=== PATIENT | female | born 1935 | race Caucasian/White ===

== ENCOUNTER → 2016-12-18 | Outpatient (CLI) | payer MEDICARE, OTHER ==
[~2016-12-18] MED LIST: B12100 MCG PO; BIOTIN1000 MCG PO; COZAAR50 MG PO; HYDRODIURIL25 MG PO; K-PHOS500 MG PO; SYNTHROID,LEVO50 MCG PO; TOPROL-XL50 MG PO; VITAMIN D31000 IU PO; ZETIA10 MG PO
[2016-12-18 12:10] LABS: ALBUMIN 3.6 gm/dl (3.1-4.5); BUN 27 mg/dl (7-24); CARBON DIOXIDE 27 mmol/L (21-32); CHLORIDE 103 mmol/L (98-107); EST GLOM FILT AFRICAN AMERICAN > 60 ml/min; GLUCOSE 89 mg/dL (65-99); POTASSIUM 4.2 mmol/L (3.5-5.1); SGOT/AST 41 IU/L (3-35); SGPT/ALT 39 U/L (12-78); SODIUM 138 mmol/L (136-145)
[2016-12-18 12:11] LABS: ALKALINE PHOSPHATASE 71 U/L (45-117); BILIRUBIN, TOTAL 0.4 mg/dl (0.2-1.0)
== END | disposition home or self-care (01) ==
LOC: LAB 00:10
PROVIDERS: Physician Assistant
DX: Z79.1 Long term (current) use of non-steroidal anti-inflammatories (NSAID) (principal)

== ENCOUNTER → 2017-01-23 | Outpatient (CLI) | payer MEDICARE, OTHER ==
[2017-01-23 11:26] LABS: BASO # 0.1 10*3/uL (0.0-0.1); EOS # 0.2 10*3/uL (0.0-0.4); EOS % 2.8 % (1.0-4.0); HEMATOCRIT 39.4 % (37.0-47.0); HEMOGLOBIN 13.3 g/dl (12.0-16.0); LYMPH # 2.1 10*3/uL (1.3-4.4); LYMPH % 34.3 % (27.0-41.0); MEAN CELL VOLUME 94.3 fl (81.0-99.0); MEAN CORPUSCULAR HGB 31.8 pg (27.0-31.0); MEAN CORPUSCULAR HGB CONC 33.8 g/dl (33.0-37.0); MEAN PLATELET VOLUME 9.4 fl (9.6-12.3); MONO # 0.4 10*3/uL (0.1-1.0); MONO % 6.3 % (3.0-9.0); NEUT # 3.3 10*3/uL (2.3-7.9); NEUT % 55.3 % (47.0-73.0); PLATELET COUNT AUTOMATED 217 10*3/uL (130-400); RED BLOOD COUNT 4.18 10*6/uL (4.10-5.10); RED CELL DISTRI WIDTH 13.4 % (0-14.5)
[2017-01-23 11:28] LABS: BILIRUBIN NEGATIVE (NEGATIVE); BLOOD 1+ (NEGATIVE); CLARITY CLEAR (CLEAR); COLOR YELLOW (YELLOW); GLUCOSE NEGATIVE (NEGATIVE); KETONE NEGATIVE (NEGATIVE); LEUKO ESTERASE TRACE (NEGATIVE); NITRITE NEGATIVE (NEGATIVE); UROBILINOGEN 0.2 E.U./dl (0.2-1.0)
[2017-01-23 11:57] LABS: BUN 18 mg/dl (7-24); CHLORIDE 105 mmol/L (98-107); CREATININE 1.04 mg/dL (0.55-1.02); SODIUM 137 mmol/L (136-145)
[2017-01-23 12:00] LABS: INTERNATIONAL NORM RATIO 1.1 (2.0-3.5)
== END | disposition home or self-care (01) ==
LOC: LAB 10:19
PROVIDERS: Surgery
DX: Z01.818 Encounter for other preprocedural examination (principal); K42.9 Umbilical hernia without obstruction or gangrene; D68.8 Other specified coagulation defects; Z79.899 Other long term (current) drug therapy

== ENCOUNTER → 2017-01-29 | Day surgery (SDC) | payer MEDICARE, OTHER ==
[2017-01-23 10:35] VITALS: BP 152/71
[~2017-01-29] VITALS: Ht 162.5 cm; Wt 85.3 kg
[2017-01-29] VITALS (7 sets, daily range): BP systolic 117–167; BP diastolic 49–84
[~2017-01-29] MED LIST changes: +NORCO 5-325 TA1 EACH PO
--- NOTE | ~2017-01-29 | O ---
[place], [place] OPERATIVE NOTE NAME: IZABELA ARTEAGA UNIT #: [id number] ROOM: DOCTOR: CYRUS GARCIA MD BIRTHDATE: [birth year] DOS: 01/29/2017 PREOPERATIVE DIAGNOSIS: Umbilical hernia. POSTOPERATIVE DIAGNOSIS: Umbilical hernia. PROCEDURE: Umbilical hernia repair (primary). SURGEON: Cyrus Garcia MD CAUSTIC ROOM ATTENDANT: MS3. ANESTHESIA: General. INDICATIONS: This is a 81-year-old lady with a history of symptomatic umbilical hernia who is here for the above-mentioned procedure. The procedure and its complications were explained to the patient in detail preoperatively. Complications that were discussed included but were not limited to bleeding, infection, hematoma/seroma/abscess formation, prolonged postoperative pain, and recurrence. She agreed to proceed. DESCRIPTION OF PROCEDURE: After identifying the patient, the patient was brought to the operating suite and laid in the supine position. After induction of general anesthesia, timeout procedure was called and the parts were then painted and draped in the usual sterile fashion. An incision below the umbilicus was made in a curvilinear fashion. The skin and the subcutaneous tissue were incised. The hernial sac was identified and from the overlying skin of the umbilicus and the surrounding subcutaneous tissue with the help of electrocautery. Thereafter, the sac was incised and sent for histopathological diagnosis, it had no contents. The opening of the defect was less than 0.2 cm and therefore, decision was made to proceed with primary repair. This was performed with the help of 0 PDS in a [id number]-[id number]-fnahn fashion. Thereafter, the subcutaneous tissue was irrigated and approximated with the help of 3-0 Vicryl in a running fashion and the skin edges after they were infiltrated with 1% plain lidocaine were approximated with the help of 4-0 Vicryl in a subcuticular running fashion. Dressing was placed. The patient tolerated the procedure well and was taken to the recovery room in stable fashion after uneventful extubation. There were no complications. Dr. Cyrus Garcia, the attending surgeon, was present throughout the operating case. [place], [place] OPERATIVE NOTE NAME: IZABELA ARTEAGA UNIT #: [id number] ROOM: DOCTOR: CYRUS GARCIA MD BIRTHDATE: [birth year] Cyrus Garcia MD CM:SANTOORD:OPERATIVE NOTE 0823 20 CYRUS GARCIA MD 01/29/17 1020 interface
== END | disposition home or self-care (01) ==
LOC: SDC 01-23 10:15
DX: K42.9 Umbilical hernia without obstruction or gangrene (principal); I10 Essential (primary) hypertension; E78.00 Pure hypercholesterolemia, unspecified; Z90.710 Acquired absence of both cervix and uterus; Z96.619 Presence of unspecified artificial shoulder joint

== ENCOUNTER → 2017-06-11 | Outpatient (CLI) | payer MEDICARE, OTHER ==
[2017-06-11 11:45] LABS: ALKALINE PHOSPHATASE 74 U/L (45-117); BUN 27 mg/dl (7-24); CHLORIDE 101 mmol/L (98-107); CREATININE 1.02 mg/dL (0.55-1.02); POTASSIUM 3.8 mmol/L (3.5-5.1); SGOT/AST 23 IU/L (3-35); SGPT/ALT 33 U/L (12-78); SODIUM 140 mmol/L (136-145); TOTAL PROTEIN 7.8 gm/dL (6.4-8.2)
== END ==
LOC: LAB 06-10 01:35
PROVIDERS: Orthopaedic Surgery
DX: Z51.81 Encounter for therapeutic drug level monitoring (principal); Z79.1 Long term (current) use of non-steroidal anti-inflammatories (NSAID)

== ENCOUNTER → 2018-06-02 | Day surgery (SDC) | payer MEDICARE, OTHER ==
[~2018-06-02] VITALS: Ht 162.5 cm; Wt 86.2 kg
[~2018-06-02] MED LIST changes: +METOPROLOL SUCC50 M1 PO
--- NOTE | ~2018-06-02 | O ---
[place], [place] OPERATIVE NOTE NAME: IZABELA ARTEAGA UNIT #: [id number] ROOM: DOCTOR: RAUL MOORE MD BIRTHDATE: [birth year] DOS: 06/02/2018 PREOPERATIVE DIAGNOSIS: Cataract, right eye. POSTOPERATIVE DIAGNOSIS: Cataract, right eye. OPERATION: Extracapsular cataract extraction by phacoemulsification with posterior chamber intraocular lens implantation, right eye. ANESTHESIA: Monitored standby. OPERATIVE FINDINGS AND PROCEDURE: 2% Xylocaine topical anesthetic gel was applied to the eye in the preop area. The patient was taken to the operating room and prepped and draped in the standard fashion for sterile intraocular surgery. A time out procedure was performed verifying correct patient, correct site and corrects lens with Regina Moore M.D. The operating microscope was swung into position and the lid speculum was inserted. Using a Renu paracentesis blade, a paracentesis was made through clear cornea. Viscoelastic was used to fill the anterior chamber. Using a metal keratome, a 2.4 mm self-sealing clear corneal cataract incision was made temporally at the limbus. Using a pre-bent 25 gauge cystotome needle, a standard continuous curvilinear capsulorrhexis was performed. The anterior capsule was removed with forceps. The lens nucleus was hydrodissected and phacoemulsified in the posterior chamber. Cortical material was removed with the irrigation aspiration hand piece and the posterior capsule was then polished with a curet under irrigation. The posterior chamber and capsular bag were filled with viscoelastic. A posterior chamber intraocular lens manufactured by: [employer], Model #[id number] and 21.0 diopters in strength were then inserted into the posterior chamber and within the capsular bag using the lens cartridge and injector system. Viscoelastic was removed using the irrigation aspiration handpiece. The anterior chamber was filled with balanced salt solution through the paracentesis. Both the paracentesis site and cataract incisions were hydrated with BSS and verified to be water-tight and self-sealing. Cefuroxime 1 mg/0.1 mL was injected into the anterior chamber through the paracentesis site. The incision checked to be water-tight using a Weck-Lexie sponge. The integrity of the cataract wound and ocular tension were checked. Lid speculum and drapes were removed. The patient was transferred from the operating room to the recovery room in satisfactory condition. [place], [place] OPERATIVE NOTE NAME: IZABELA ARTEAGA UNIT #: [id number] ROOM: DOCTOR: RAUL MOORE MD BIRTHDATE: [birth year] RAUL MOORE MD CM:OPRECORD:OPERATIVE NOTE [id number] RAUL MOORE MD 06/02/18 1101 interface
[2018-06-02 07:45] VITALS: BP 140/57
[2018-06-02 09:14] VITALS: BP 122/67
[2018-06-02 09:30] VITALS: BP 98/54
[2018-06-02 09:44] VITALS: BP 112/55
== END | disposition home or self-care (01) ==
LOC: SDC 05-31 15:30
DX: H25.811 Combined forms of age-related cataract, right eye (principal); I10 Essential (primary) hypertension; E78.00 Pure hypercholesterolemia, unspecified; Z90.710 Acquired absence of both cervix and uterus; Z98.890 Other specified postprocedural states; Z79.899 Other long term (current) drug therapy

== ENCOUNTER → 2019-01-21 | Outpatient (CLI) | payer MEDICARE, OTHER | END | disposition home or self-care (01) | LOC: CT 00:22 | DX: M17.11 Unilateral primary osteoarthritis, right knee (principal); M71.21 Synovial cyst of popliteal space [Baker], right knee ==

== ENCOUNTER → 2019-02-01 | Outpatient (CLI) | payer MEDICARE, OTHER | END | disposition home or self-care (01) | LOC: RAD 13:45 | DX: M50.322 Other cervical disc degeneration at C5-C6 level (principal); M47.812 Spondylosis without myelopathy or radiculopathy, cervical region; M46.02 Spinal enthesopathy, cervical region ==

== ENCOUNTER → 2019-02-22 | Outpatient (CLI) | payer MEDICARE, OTHER ==
[~2019-02-22] MED LIST changes: +ASPIRIN LITE C325 MG PO; +Lovenox40 MG/0.4 PO; +Lovenox40 MG/0.4 SC; -SYNTHROID,LEVO50 MCG PO; +SYNTHROID,LEVO75 MCG PO
--- NOTE | ~2019-02-22 | EKG ---
[place], [place] ELECTROCARDIOGRAM REPORT NAME: IZABELA ARTEAGA UNIT #: [id number] ROOM: DOCTOR: EPIPHANY DRAFT REPORT BIRTHDATE: [birth year] [facility] [place] Test Date: 2019-02-22 Test Time: 15:33:25 Pat Name: IZABELA ARTEAGA Department: Room: Gender: F Weatherization Field Technician: : 1935 Requested By: MARIE WASHINGTON Order Number: [id number] Reading MD: Gosia Samano MD Measurements Intervals Jud Rate: 57 P: 37 [place]: 172 QRS: 5 QRSD: 135 T: 14 QT: 468 QTc: 456 Interpretive Statements Sinus rhythm Right bundle branch block Low voltage precordial leads Electronically Signed On 02-23-2019 15:54:39 PDT by Gosia Samano MD CM:EKGRPT:ELECTROCARDIOGRAM REPORT [id number] MARIE HENDERSON DRAFT REPORT MARIE WASHINGTON DO
[2019-02-22 16:03] LABS: BILIRUBIN NEGATIVE (NEGATIVE); BLOOD NEGATIVE (NEGATIVE); CLARITY CLEAR (CLEAR); COLOR YELLOW (YELLOW); GLUCOSE NEGATIVE (NEGATIVE); KETONE NEGATIVE (NEGATIVE); LEUKO ESTERASE NEGATIVE (NEGATIVE); NITRITE NEGATIVE (NEGATIVE); PH 5.5 (5.0-9.0); UROBILINOGEN 0.2 E.U./dl (0.2-1.0)
[2019-02-22 16:04] LABS: BASO % 0.5 % (0.0-1.0); EOS # 0.2 10*3/uL (0.0-0.4); EOS % 2.1 % (1.0-4.0); HEMATOCRIT 40.2 % (37.0-47.0); HEMOGLOBIN 13.6 g/dl (12.0-16.0); LYMPH # 2.2 10*3/uL (1.3-4.4); LYMPH % 27.3 % (27.0-41.0); MEAN CELL VOLUME 97.3 fl (81.0-99.0); MEAN CORPUSCULAR HGB 32.9 pg (27.0-31.0); MEAN CORPUSCULAR HGB CONC 33.8 g/dl (33.0-37.0); MEAN PLATELET VOLUME 9.9 fl (9.6-12.3); MONO # 0.5 10*3/uL (0.1-1.0); MONO % 6.1 % (3.0-9.0); NEUT # 5.2 10*3/uL (2.3-7.9); NEUT % 63.9 % (47.0-73.0); PLATELET COUNT AUTOMATED 233 10*3/uL (130-400); RED BLOOD COUNT 4.13 10*6/uL (4.10-5.10); RED CELL DISTRI WIDTH 13.1 % (0-14.5); WHITE BLOOD COUNT 8.2 10*3/uL (4.8-10.8)
[2019-02-22 16:14] LABS: EPITHELIAL CELLS 0-2
[2019-02-22 16:22] LABS: ALBUMIN 3.6 gm/dl (3.1-4.5); ALKALINE PHOSPHATASE 64 U/L (45-117); BUN 17 mg/dl (7-24); CHLORIDE 104 mmol/L (98-107); CREATININE 0.97 mg/dL (0.55-1.02); POTASSIUM 3.4 mmol/L (3.5-5.1); SGOT/AST 23 IU/L (3-35); SGPT/ALT 31 U/L (12-78); SODIUM 138 mmol/L (136-145); TOTAL PROTEIN 7.2 gm/dL (6.4-8.2)
== END | disposition home or self-care (01) ==
LOC: LAB 13:12
PROVIDERS: Orthopaedic Surgery
DX: Z01.818 Encounter for other preprocedural examination (principal); J43.9 Emphysema, unspecified; M17.11 Unilateral primary osteoarthritis, right knee; I45.10 Unspecified right bundle-branch block; E55.9 Vitamin D deficiency, unspecified

== ENCOUNTER → 2019-03-03 | Outpatient (CLI) | payer MEDICARE, OTHER | END | disposition home or self-care (01) | LOC: LAB 10:40 | DX: Z01.818 Encounter for other preprocedural examination (principal); E03.9 Hypothyroidism, unspecified ==

== ENCOUNTER 2019-03-08 01:02 | Inpatient (IN) | payer MEDICARE, OTHER ==
[2019-02-22 13:32] VITALS: BP 153/66
[2019-03-08] VITALS (13 sets, daily range): BP systolic 106–135; BP diastolic 49–71
[~2019-03-08] VITALS: Ht 162.6 cm; Wt 84.4 kg
[~2019-03-08 01:02] MED LIST changes: -ASPIRIN LITE C325 MG PO; -Lovenox40 MG/0.4 PO; -Lovenox40 MG/0.4 SC
--- NOTE | 2019-03-08 12:00 | NUR ---
A 83, admitted to , under the services of LIDA Judge DO with a diagnosis of RIGHT TOTAL KNEE REPLACEMENT. Chief complaint is RIGHT TOTAL KNEE REPLACEMENT. Patient arrived [place] from [place]. Initial assessment completed. Vital signs taken and recorded. LIDA JUDGE DO notified of admission to the unit. See assessment for past medical history, medications and allergies. Patient and/or family oriented to unit. [address] visitation policy reviewed. Clothing/patient valuable form completed. JARROD HILL
--- NOTE | 2019-03-08 12:32 | NUR ---
NOTIFIED DR WALLACE THAT MED REC IS COMPLETED.
--- NOTE | 2019-03-08 12:34 | NUR ---
DR DOUGLASS NOTIFIED OF COMPLETED MED REC PER DR. BOOTH' REQUEST.
--- NOTE | 2019-03-08 13:57 | NUR ---
PT INSTRUCTED ON USE OF IS. PT PERFORMED 10 BREATHS FOR 1000 - 1500ML. PT EFFORT IS GOOD. WILL CONTINUE TO REASSESS PT IS USE.
--- NOTE | 2019-03-08 14:06 | NUR ---
MEDICATED WITH PRN IV DILAUDID FOR RIGHT KNEE PAIN.
--- NOTE | 2019-03-08 14:10 | NUR ---
Patient not available for Occupational Therapy as nursing reports she was given dilodid for pain and for therapy to give her half an hour befor trying to evaluate. Marcia Mcgee OTR/L
--- NOTE | 2019-03-08 14:10 | NUR ---
PHYSICAL THERAPY Physical therapy evaluation attempted. Nurse reports she just gave Patient medication; requesting therapy to return in half an hour. Will attempt later. Thank you Magaly Santiago, PT, DPT
--- NOTE | 2019-03-08 14:15 | NUR ---
MEDICATED WITH PRN IV ZOFRAN FOR NAUSEA ASSOCIATED WITH DILAUDID ADMINISTRATION.
--- NOTE | 2019-03-08 14:52 | NUR ---
PHYSICAL THERAPY Physical therapy evaluation attempted however Pt refuse due to feeling ill and having a reaction to medication provided. Will attempt tomorrow. Thank you Magaly Santiago, PT, DPT
--- NOTE | 2019-03-08 14:52 | NUR ---
Occupational Therapy evaluation offered to patient at this time. Nurse in attendance giving IV medication and patient reported that "I couldn't walk if I wanted too. I'm having a reaction to the pain meds with nausea,headache" OTR will recheck at a later date. Marcia Mcgee OTR/julia
--- NOTE | 2019-03-08 15:09 | NUR ---
PRN IV DILAUDID EFFECTIVE FOR PAIN, BUT REMAINS NAUSEATED AFTER ZOFRAN.
[2019-03-09] VITALS: BP 119/70
--- NOTE | 2019-03-09 05:41 | NUR ---
IZABELA ARTEAGA [id number] Please refer to the physician's history and physical for past medical history, comorbid conditions, and allergies. Diagnosis: RIGHT TOTAL KNEE REPLACEMENT Daniel Score: 19,LOW OR NO RISK WOUND DESCRIPTIONS: Dressing intact to right knee. No strikethrough drainage noted at time of assessment. Patient stated that she will continue follow up care with Dr. Sage upon discharge. Surface the patient is resting on: Isoflex SKIN PREVENTION RECOMMENDATION: 1. Pressure redistribution support surface as appropriate 2. Elevate heels 3. Remove boots/TEDS every shift and reapply 4. Head of bed 30 degrees as tolerated 5. Assess nutrition and hydration 6. Manage moisture 7. Avoid the use of containment devices while in bed 8. Use absorptive products on surfaces limit layers of linens on bed 9. Turn and reposition every 1-2 hours in bed and every 1 hour in chair as tolerated 10. Weight shifts every 15 minutes while up in chair 11. Offloading with pillows or device to keep heels elevated off bed 12. Monitor skin at least every shift 13. Inspect under medical devices twice a day WOUND TREATMENT RECOMMENDATIONS:
[2019-03-09 06:30] LABS: BASO % 0.2 % (0.0-1.0); EOS % 0.3 % (1.0-4.0); HEMATOCRIT 33.1 % (37.0-47.0); HEMOGLOBIN 10.9 g/dl (12.0-16.0); LYMPH # 1.9 10*3/uL (1.3-4.4); LYMPH % 17.9 % (27.0-41.0); MEAN CELL VOLUME 97.6 fl (81.0-99.0); MEAN CORPUSCULAR HGB 32.2 pg (27.0-31.0); MEAN CORPUSCULAR HGB CONC 32.9 g/dl (33.0-37.0); MEAN PLATELET VOLUME 9.7 fl (9.6-12.3); MONO # 0.9 10*3/uL (0.1-1.0); MONO % 8.5 % (3.0-9.0); NEUT # 7.5 10*3/uL (2.3-7.9); NEUT % 72.9 % (47.0-73.0); PLATELET COUNT AUTOMATED 207 10*3/uL (130-400); RED BLOOD COUNT 3.39 10*6/uL (4.10-5.10); RED CELL DISTRI WIDTH 13.3 % (0-14.5); WHITE BLOOD COUNT 10.3 10*3/uL (4.8-10.8)
[2019-03-09 06:47] LABS: CHLORIDE 103 mmol/L (98-107); POTASSIUM 3.6 mmol/L (3.5-5.1); SODIUM 136 mmol/L (136-145)
[2019-03-09 07:05] LABS: ALBUMIN 2.8 gm/dl (3.1-4.5); ALKALINE PHOSPHATASE 46 U/L (45-117); BUN 15 mg/dl (7-24); CREATININE 0.98 mg/dL (0.55-1.02); PHOSPHOROUS 2.8 mg/dL (2.5-4.9); SGOT/AST 24 IU/L (3-35); SGPT/ALT 25 U/L (12-78)
[2019-03-09 07:07] LABS: THYROID STIM HORMONE (HS) 0.566 uIU/ml (0.358-4.75)
[2019-03-09 08:00] VITALS: BP 102/50; BP 91/46
--- NOTE | 2019-03-09 08:08 | NUR ---
PT RATES HER PAIN A 7/10 SO PERCOCET PO WAS GIVEN PRESCRIBED.
--- NOTE | 2019-03-09 08:52 | NUR ---
PHYSICAL THERAPY Physical therapy evaluation completed, 4E. Full details and evaluation to follow. Moderate complexity determined after evaluation, 440[address]. PT to work on strength, ROM, gait, transfers, balance and safety. Recommending SNF at discharge. Thank you Magaly mckeon, PT, DPT
--- NOTE | 2019-03-09 08:52 | NUR ---
Occupational Therapy evaluation completed on 4 with full eval to follow. Precautions include right TKA precautions, new ww use, fall risk, morales catheter, IV UE, ANGELICA hose, CPM machine for RLE, WBAT RLE, right knee pain. Patient is moderate complexity level 33020. Recommend OT per POC for ADLs,functional mobility, R TKA precaution, ww education in ADLs per POC and SNF to enable return home w/ . Thank you. Gus Mcgee OTR/l
--- NOTE | 2019-03-09 09:00 | NUR ---
Lead Athlete in to talk to patient. Patient states lives at home with . There are fewkubicki steps in the home. Physician: savi [facility]acy: [facility]: none Patient's level of ADLs: MINIMAL ASSIST Patient has working utilities: all working DME: walker Follow-up physician's appointment after d/c: will be made by hospitalist nurse director upon discharge Does patient want to access PORTAL?: no Discharge plan discussed with patient, she lives at home with , she states she was indepenedent in adls and ambulation until her electived surgery, discussed with her a short term residential for rehab prior to returning home, she was agreeable and wanted a referral make to [facility], cyber ops planner will make referral to [place], case management will follow. DARBY SAXENA
--- NOTE | 2019-03-09 09:07 | NUR ---
PERCOCET EFF PER PT. WILL CONT TO MONITOR. CALL LIGHT IN REACH.
--- NOTE | 2019-03-09 10:00 | NUR ---
CPM APPLIED AT THIS TIME.
--- NOTE | 2019-03-09 11:17 | NUR ---
PT C/O PAIN OF 8/10 TO RIGHT KNEE. MORPHINE GIVEN AT THIS TIME. WILL CONT TO MONITOR. CALL LIGHT IN REACH.
--- NOTE | 2019-03-09 11:28 | NUR ---
Patient [facility] referral [facility]. Contacted facility; [facility] is full and has no discharge plans. Patient referred to [facility]. Requires 3 night stay.
[2019-03-09 12:00] VITALS: BP 107/56
--- NOTE | 2019-03-09 12:00 | NUR ---
PT TAKEN OFF CPM
--- NOTE | 2019-03-09 12:17 | NUR ---
MORPHINE EFF AT THIS TIME.WILL CONT TO MONITOR. CALL LIGHT IN REACH.
--- NOTE | 2019-03-09 13:40 | NUR ---
PHYSICAL THERAPY Patient seen this pm 1;1 for therapy visit and was resting supine in bed upon therapist arrival. Patient identified by name / and was very pleasant this afternoon, voicing 5/10 R knee pain. Patient reviewed / performed supine quad, glute sets and ankle pumps x 10 reps each, followed by transfering supine to sit EOB with MIN A x 1. Patient is WBAT on R LE and completed sit to stand transfer, MIN A, demonstrating increased difficulty secondary to R LE increaseed edema / decreased knee flexion. Patient educated on improved transfer technique and was able to demonstrate improved ease of performance from bedside chair. Patient ambulated with use of wh walker, CGA, 10'x 1, 20'x 1 to bathroom, demonstrating slow, "step to" neena. Patient was Fair+ safety awareness during all turns and returned to bedside chair following gait ex. Patient remained in chair with call light, tray table and cell phone. Will continue per POC as tolerated, total treatment time 18 mintues. Koko Ross, MATERIAL PLANNING ANALYST
--- NOTE | 2019-03-09 14:08 | NUR ---
OT NOTE Pt was seen this P.M. 1:1 for 18 minute OT session. Upon arrival pt was supine in bed. Pt identified by name and and had complaints of 5/10 R knee pain. Pt transferred supine to sit EOB with Mekhi for assist with RLE management. Pt then completed sit to stand transfer from the bed level with Mekhi and use of w/w. Functional mobility then completed to the bathroom with CGA and use of w/w. Pt required occasional verbal prompts for proper step sequence and safety with the walker. Pt was educated on toilet transfers and techniques for increased I. Pt had good carry over and was able to transfer on to standard commode with CGA and use of grab bar and off with Mekhi due to low surface. Functional mobility completed back to the recliner with CGA and use of w/w. There she was left sitting upright with feet reclined, call light in hand, tray table in place, and phone in reach. Continue with rec D/C plan to SNF. CINDY Olivarez
[2019-03-09 16:00] VITALS: BP 126/49
--- NOTE | 2019-03-09 16:09 | NUR ---
PERCOCET GIVEN AT THIS TIME FOR C/O PAIN OF 8/10 TO RIGHT KNEE. WILL CONT TO MONITOR. CALL LIGHT IN REACH.
--- NOTE | 2019-03-09 17:09 | NUR ---
PERCOCET EFF. WILL CONT TO MONITOR. CALL LIGHT IN REACH.
--- NOTE | 2019-03-09 18:24 | NUR ---
C/O CONSTIPATION. COLACE GIVEN AT THIS TIME. WILL CONT TO MONITOR. CALL LIGHT IN REACH.
[2019-03-09 20:00] VITALS: BP 112/54
--- NOTE | 2019-03-09 20:30 | NUR ---
Pt instructed on incentive spirometer. 1500cc. Encouraged 10 breaths an hour while awake. Pt on room air.
[2019-03-10] VITALS: BP 133/51
[2019-03-10 06:54] LABS: BASO % 0.3 % (0.0-1.0); EOS # 0.1 10*3/uL (0.0-0.4); EOS % 1.3 % (1.0-4.0); HEMATOCRIT 30.6 % (37.0-47.0); HEMOGLOBIN 10.3 g/dl (12.0-16.0); LYMPH # 1.5 10*3/uL (1.3-4.4); LYMPH % 15.9 % (27.0-41.0); MEAN CELL VOLUME 96.2 fl (81.0-99.0); MEAN CORPUSCULAR HGB 32.4 pg (27.0-31.0); MEAN CORPUSCULAR HGB CONC 33.7 g/dl (33.0-37.0); MEAN PLATELET VOLUME 9.9 fl (9.6-12.3); MONO # 0.8 10*3/uL (0.1-1.0); MONO % 8.4 % (3.0-9.0); NEUT # 7.1 10*3/uL (2.3-7.9); NEUT % 73.8 % (47.0-73.0); PLATELET COUNT AUTOMATED 202 10*3/uL (130-400); RED BLOOD COUNT 3.18 10*6/uL (4.10-5.10); RED CELL DISTRI WIDTH 13.2 % (0-14.5); WHITE BLOOD COUNT 9.7 10*3/uL (4.8-10.8)
[2019-03-10 07:20] LABS: BUN 14 mg/dl (7-24); CHLORIDE 103 mmol/L (98-107); CREATININE 0.86 mg/dL (0.55-1.02); POTASSIUM 3.3 mmol/L (3.5-5.1); SODIUM 136 mmol/L (136-145)
--- NOTE | 2019-03-10 07:58 | NUR ---
MANAGER OF CONSTRUCTION faxed PT/OT [facility] to [facility]. -LISA Winter
[2019-03-10 08:00] VITALS: BP 138/52
--- NOTE | 2019-03-10 08:37 | NUR ---
OT NOTE Pt was seen this A.M. 1:1 for 19 minute OT session. Upon arrival pt was supine in bed. Pt identified by name and and had complaints of 5/10 R knee pain. Pt transferred supine to sit EOB with Mekhi for assist with RLE. Sit to stand completed from bed level with CGA and use of w/w for UE support. Functional mobility then completed into the bathroom with CGA and use of w/w. There she transferred on to standard commode with Mekhi and verbal prompts for technique for increased I. Clothing management completed with CGA and toilet hygiene completed with supervision while seated. Pt then transferred off standard commode with modA due to low surface. Pt stood sink side while washing her hands with CGA for safety. Functional mobility then completed back to the recliner. Attempted to complete lower body adaptive equipment training and pt's breakfast tray arrived, will continue with training at a later time/date. Pt was left sitting upright in the recliner with call light in hand, tray table in place, and phone in reach. Continue with rec D/C plan to SNF. CINDY Olivarez
--- NOTE | 2019-03-10 09:00 | NUR ---
case management visits with patient, she has been accepted at [facility] and after a 3 night stay she can be discharged there. she will be eligible to go tomorrow, case management will follow
--- NOTE | 2019-03-10 10:30 | NUR ---
CPM MACHINE APPLIED AT THIS TIME.
--- NOTE | 2019-03-10 11:00 | NUR ---
PATIENT STATES CPM MACHINE IS UNCOMFORTABLE. STATES IT FEELS LIKE IT IS SLIPPING. READJUSTED AT THIS TIME.
--- NOTE | 2019-03-10 11:45 | NUR ---
PATIENT STATES CPM MACHINE IS UNCOMFORTABLE. ATTEMPTED TO CONTACT TIME FROM PT FOR HELP ADJUSTING. NO ANSWER AT THIS TIME.
[2019-03-10 12:00] VITALS: BP 140/76
--- NOTE | 2019-03-10 12:30 | NUR ---
CPM MACHINE DISCONTINUED AT THIS TIME. PATIENT TOLERATED OK.
--- NOTE | 2019-03-10 13:32 | NUR ---
PHYSICAL THERAPY Patient seen this am 1:1 for therapy visit and was supine in bed upon therapist arrival. Patient identified by name / and reports R knee stiffness / edema. Patient transfers supine to sit EOB with MIN A, followed by sit to stand CGA x 1. Patient ambulates with use of wh walker, CGA, 15'x 1 to bathroom, then additional 35'x 1, CGA, demonstrating slow, antalgic gait pattern. Patient reports mild c/o pain R Knee during standing activities, 3/10 and needed v/c for increased stride, increased upright posture. Patient returned to bedside chair with mild fatigue noted and remained with call light, tray table and telephone. Will continue per POC as tolereated, total treatment time 15 minutes. Koko Ross, SLURRY CONTROL OPERATOR HELPER
--- NOTE | 2019-03-10 14:00 | NUR ---
OT NOTE Pt was seen this P.M. 1:1 for second OT session consisting of 30 minutes. Upon arrival pt was supine in bed. Pt identified by name and and had complaints of 5/10 R knee pain. Pt transferred supine to sit EOB with SBA with education on transfer technique of "hooking" her RLE with her LLE. Pt completed sit to stand transfer from bed level with CGA and use of w/w for UE support. Functional mobility then completed into the bathroom with CGA and use of w/w. There she transferred on/off standard commode with Mekhi and use of grab bar. Clothing management completed with Mekhi and toilet hygiene completed with supervision while seated. Pt then sat EOB while being educated and demonstrated use of lower body adaptive equipment including dinkey operator slag, sock aid, and long handled sponge for increased I in lower body dressing and bathing. Pt was able to doff B socks with SBA and use of dinkey operator slag, arnulfo B socks with use of sock aid and SBA, and simulated LB bathing with SBA. Pt was left sitting upright on the EOB under WEBSITE/BLOG EDITOR supervision. Continue with rec D/C plan to SNF. VANITA Olivarez/Sesar
--- NOTE | 2019-03-10 14:15 | NUR ---
PHYSICAL THERAPY Patient seen this pm 1;1 for therapy visit and was sitting up on EOB following OT office assistant visit. Patient identified by name / and reports no new c/o's at this time. Patient instructed / performed seated B LE therex, all planes, 2 x 10 reps each to increase LE strength. Patient also tolerated PROM to improve R knee flexion x 10 reps then recorded seated AROM R knee flexion 54 degrees and AAROM R knee flexion 60 degrees. Patient tolerated all treatment reporting no increase in pain c/o and returned to supine in bed as her arrived. Patient remained in bed with call light, tray table and telephone. Will continue per POC as tolerated, total treatment time 16 minutes. Koko Ross, ORIGINATION SPECIALIST
[2019-03-10 16:00] VITALS: BP 138/52
[2019-03-10 20:00] VITALS: BP 127/67
[2019-03-11] VITALS: BP 131/74
--- NOTE | 2019-03-11 03:26 | NUR ---
24 HOUR CHART CHECK COMPLETE.
--- NOTE | 2019-03-11 05:50 | NUR ---
PRN PERCOCET ADMINISTERED PRESCRIBED FOR PT C/O RT KNEE SURGICAL PAIN RATED A 5/10 ON THE PAIN SCALE. WILL CONTINUE TO MONITOR AND REASSESS. NO OTHER COMPLAINTS AT THIS TIME. CALL LIGHT IN REACH.
[2019-03-11 06:15] LABS: BASO % 0.5 % (0.0-1.0); EOS # 0.1 10*3/uL (0.0-0.4); EOS % 1.6 % (1.0-4.0); HEMATOCRIT 31.3 % (37.0-47.0); HEMOGLOBIN 10.3 g/dl (12.0-16.0); LYMPH # 2.2 10*3/uL (1.3-4.4); LYMPH % 25.9 % (27.0-41.0); MEAN CELL VOLUME 99.1 fl (81.0-99.0); MEAN CORPUSCULAR HGB 32.6 pg (27.0-31.0); MEAN CORPUSCULAR HGB CONC 32.9 g/dl (33.0-37.0); MEAN PLATELET VOLUME 9.7 fl (9.6-12.3); MONO # 0.7 10*3/uL (0.1-1.0); MONO % 8.3 % (3.0-9.0); NEUT # 5.5 10*3/uL (2.3-7.9); NEUT % 63.4 % (47.0-73.0); PLATELET COUNT AUTOMATED 215 10*3/uL (130-400); RED BLOOD COUNT 3.16 10*6/uL (4.10-5.10); RED CELL DISTRI WIDTH 13.3 % (0-14.5); WHITE BLOOD COUNT 8.7 10*3/uL (4.8-10.8)
[2019-03-11 06:25] LABS: BUN 14 mg/dl (7-24); CHLORIDE 108 mmol/L (98-107); POTASSIUM 4.1 mmol/L (3.5-5.1); SODIUM 141 mmol/L (136-145)
[2019-03-11 06:31] LABS: CREATININE 0.83 mg/dL (0.55-1.02)
[2019-03-11 08:00] VITALS: BP 128/62
--- NOTE | 2019-03-11 08:00 | NUR ---
PHYSICAL THERAPY PT SUPINE IN BED WITH BED ALARM ON UPON ARRIVAL. PT IDENTIFIED BY NAME AND . PT AGREED TO ALL PHYSICAL THERAPY THIS A.M. BED PERFORMED BED MOBILITY WITH OVER HEAD TRAPIZE BAR AND CGA WITH VC'S FOR SAFETY AND TECHNIQUE. PT PERFORMED STS FROM EOB TO FWW WITH CGA AND VC'S FOR SAFETY AND TECHNIQUE. PT REQUIRE STAND STILL FOR A FEW SECONDS TO GET " READY TO WALK" ONCE IN STANDING. PT GAIT TRAINED 10FT X1 AND 15FT X1 WITH FWW AND Oscar/CGA WITH VC'S FOR HEEL TOE GAIT, POSTURE AND STEP THROUGH GAIT. PT HAD A STEP TO GAIT AND ONLY HAD MIN HEEL STRIKE AND TOE OFF WITH GAIT. PT PERFORMED STS TO TOILET WITH ONE HAND ON HAND RAIL AND CGA WITH VC'S FOR PROPER TTECHNIQUE AND SAFETY. PT PERFORMES STS TO RECLINER WITH VC'S FOR SAFETY. PT SITTING IN RECLINER WITH LE RECLINED WITH CALL LIGHT AND PHONE IN HAND AT END OF SESSION. PT SEEN 1:1 FOR 15MIN. TANNER BELTRAN PTA
--- NOTE | 2019-03-11 08:30 | NUR ---
OT NOTE Pt was seen this A.M. 1:1 for 20 minute OT session. Upon arrival pt was supine in bed. Pt identified by name and and had complaints of 5/10 R knee pain. Pt transferred supine to sit EOB with SBA. While sitting EOB pt donned B socks with use of sock aid with SBA. Sit to stand completed from bed level with CGA and use of w/w. Functional mobility completed into the bathroom with SBA and use of w/w. There she transferred on/off standard commode with Mekhi due to low surface and good carry over of technique previously educated on. Clothing management completed with CGA for safety. Functional mobility then completed back to the reciner where she was left sitting upright with call light in hand, tray table in place, and phone in reach. Continue with rec D/ Cplan to SNF. VANITA Olivarez/Sesar
--- NOTE | 2019-03-11 09:00 | NUR ---
case management visits with patient, she will be going to [facility] nursing for rehab when medically stable, patient has had her 3 night qualifing stay and would be eligible to go today, she states she has not had a bowel movement since surgery and will not be discharged until she does. case management will follow
--- NOTE | 2019-03-11 09:48 | NUR ---
LISA faxed udpates to [facility]. LISA is able to go to [facility] today if medically stable. -LISA Winter
[2019-03-11 11:48] VITALS: BP 131/64
--- NOTE | 2019-03-11 12:00 | NUR ---
NOTIFIED DR DOUGLASS THAT PATIENT HAS HAD A BOWEL MOVEMENT.
--- NOTE | 2019-03-11 12:28 | NUR ---
PT GIVEN PERCOCET FOR PAIN TO RIGHT KNEE, RATES PAIN 7/10. WILL MONITOR FOR EFFECTIVENESS. PT LYING IN BED. NO FURTHER S/S OF DISTRESS AT THIS TIME. ALL NEEDS MET. CALL LIGHT IN REACH.
--- NOTE | 2019-03-11 12:40 | NUR ---
OT NOTE Attempted to see pt this P.M. for second OT session and upon arrival pt was eating her lunch. Will check back at a later time/date and continue with POC as able. VANITA Olivarez/Sesar
--- NOTE | 2019-03-11 13:28 | NUR ---
PT STATES THAT PERCOCET IS EFFECTIVE.
--- NOTE | 2019-03-11 14:00 | NUR ---
SPOKE WITH DANYA FROM DR WASHINGTON OFFICE REGARDING WHETHER OR NOT PT IS TO GO HOME ON LOVENOX. WILL NOTIFY PRIMARY CARE TEAM AND CALL DR WASHINGTON'S OFFICE BACK WITH THE ANSWERS.
--- NOTE | 2019-03-11 14:10 | NUR ---
SPOKE WITH DANYA FROM DR PINEDA OFFICE AND RELAYED MESSAGE FROM PRIMARY CARE TEAM THAT PT CAN HAVE LOVENOX INJECTIONS ON DISCHARGE IF DR WASHINGTON WISHES TO ORDER THEM.
[2019-03-11] MEDS ORDERED: Lovenox40 MG/0.4 PO (15:04)
[2019-03-11] MEDS ORDERED: ASPIRIN LITE C325 MG PO (15:05)
[2019-03-11] MEDS ORDERED: NORCO 5-325 TA1 EACH PO (15:07)
[2019-03-11] MEDS ORDERED: Lovenox40 MG/0.4 SC (15:41)
--- NOTE | 2019-03-11 15:44 | NUR ---
DATA COLLECTION ASSOCIATE received notice of the patient discharge. DATA COLLECTION ASSOCIATE spoke with RN-Randell. DATA COLLECTION ASSOCIATE reached out to [facility] to schedule a 4:30 pickup. DATA COLLECTION ASSOCIATE notified work wine and spirits clerk alayna of transport time. DATA COLLECTION ASSOCIATE faxed face sheet to [facility]. DATA COLLECTION ASSOCIATE reached out to patient and notified him of patient transport time. will fax discharge orders to [facility]. -LISA Winter
--- NOTE | 2019-03-11 15:56 | NUR ---
Medicated with percocet per prn order for complaints of pain to rt knee, pt also states that she would like to be premedicated prior to dc states she has pain with movement and doesn't want to be in prior during transport.
--- NOTE | 2019-03-11 16:03 | NUR ---
PHYSICAL THERAPY CO-SIGN I approve of the Phyical Therapy notes written above. DARBY MCCLENDON
--- NOTE | 2019-03-11 16:05 | NUR ---
Pt assisted up out of bed to bathroom. Pt used walker for transfer and didn't want to bed knee. Assisted pt up out of bed supporting leg at ankle with transfer.
--- NOTE | 2019-03-11 16:10 | NUR ---
Dressing changed to rt knee prior to dc, site asymptomatic. No redness drainage or warmth noted. Kenneth intact. Area was cleansed with NSS and 4x4s, dressing applied as ordered.
--- NOTE | 2019-03-11 16:25 | NUR ---
States percocet starting to take effect for pain. States that it usually takes about an hour to be totally effective.
--- NOTE | 2019-03-11 16:39 | NUR ---
DC in care of [facility].
--- NOTE | 2019-03-11 16:47 | NUR ---
Report called to Kristie at [facility].
== END 2019-03-11 16:39 | disposition other institution (70) | DRG 470 ==
LOC: SDC 01:02 → 4E 07:38 → SDC 13:15 → 4E 03-11 16:39
PROVIDERS: Internal Medicine; Orthopaedic Surgery; Student in an Organized Health Care Education/Training Program; ADMIT Internal Medicine
PROC: 0SRC0J9 Replacement of Right Knee Joint with Synthetic Substitute, Cemented, Open Approach (ICD-10-PCS; principal; 2019-03-08)
DX: M17.0 Bilateral primary osteoarthritis of knee (principal); E44.0 Moderate protein-calorie malnutrition; I10 Essential (primary) hypertension; E78.5 Hyperlipidemia, unspecified; Z96.612 Presence of left artificial shoulder joint; Z96.611 Presence of right artificial shoulder joint; E55.9 Vitamin D deficiency, unspecified; E53.8 Deficiency of other specified B group vitamins; E03.9 Hypothyroidism, unspecified; K21.9 Gastro-esophageal reflux disease without esophagitis; Z90.49 Acquired absence of other specified parts of digestive tract; Z82.49 Family history of ischemic heart disease and other diseases of the circulatory system; Z83.3 Family history of diabetes mellitus; Z80.51 Family history of malignant neoplasm of kidney; Z79.899 Other long term (current) drug therapy

== ENCOUNTER → 2019-04-15 | Outpatient (CLI) | payer MEDICARE, OTHER ==
[~2019-04-15] MED LIST changes: +ASPIRIN LITE C325 MG PO; +Lovenox40 MG/0.4 PO; +Lovenox40 MG/0.4 SC
== END | disposition home or self-care (01) ==
LOC: ORTHO 04-14 17:32 → RAD 00:23 → ORTHO 17:33 → RAD 17:34
DX: Z96.651 Presence of right artificial knee joint (principal)

== ENCOUNTER → 2020-02-10 | Outpatient (CLI) | payer MEDICARE, OTHER | END | disposition home or self-care (01) | LOC: RAD 13:27 | PROVIDERS: ATTEND Internal Medicine | DX: Z13.820 Encounter for screening for osteoporosis (principal); Z78.0 Asymptomatic menopausal state ==

== ENCOUNTER → 2021-01-15 | Outpatient (CLI) | payer MEDICARE, OTHER ==
[2021-01-15 15:23] LABS: CHLORIDE 102 mmol/L (98-107); POTASSIUM 3.9 mmol/L (3.5-5.1); SODIUM 135 mmol/L (136-145)
[2021-01-15 15:32] LABS: ALBUMIN 3.6 gm/dl (3.1-4.5); ALKALINE PHOSPHATASE 74 U/L (45-117); BUN 17 mg/dl (7-24); SGOT/AST 41 IU/L (3-35); SGPT/ALT 42 U/L (12-78); TOTAL PROTEIN 7.6 gm/dL (6.4-8.2); URIC ACID 5.4 mg/dL (2.6-6.0)
== END | disposition home or self-care (01) ==
LOC: LAB 00:19
PROVIDERS: ATTEND Podiatrist
DX: M10.9 Gout, unspecified (principal)